=== PATIENT | female | born 1990 | race Two or more races ===

== ENCOUNTER 2016-06-10 17:44 | Inpatient (IN) | payer BC, MEDICAID ==
[~2016-06-10] VITALS: Ht 157.5 cm; Wt 72.9 kg
[~2016-06-10 17:44] MED LIST: ALBUAER3 IN; AMOX-263 PO; PRED-188 PO; TRAM50TA2 PO; [UNRECOGNIZED DRUG - CODE] PO
[2016-06-10 18:38] LABS: Urine Bilirubin Negative (Negative); Urine Blood TRACE /uL (Negative); Urine Color Yellow (Yellow); Urine Glucose Normal (Normal); Urine Ketone 1+ (Negative); Urine Mucus FEW (None Seen); Urine Nitrite Negative (Negative); Urine RBC 2 /hpf (0 - 4); Urine Squamous Epithelial Cell FEW /hpf (<5); Urine Urobilinogen Normal (Negative)
[2016-06-10 18:59] LABS: Basophils # (auto) 0.1 uL; Basophils % (auto) 0.5 % (0.0-2.0); Eosinophils # (auto) 0 uL; Hematocrit 40.1 % (36.0-46.0); Hemoglobin 13.6 g/dL (12.2-16.2); Lymphocytes # (auto) 1.8 uL; Lymphocytes % (auto) 11.8 % (10.0-50.0); Mean Corpuscular Hemoglobin 29.1 pg (28.0-32.0); Mean Corpuscular Hgb Conc. 33.8 g/dL (32.0-36.0); Mean Corpuscular Volume 86.1 fL (80.0-100.0); Mean Platelet Volume 9.1 fL (7.4-10.4); Monocytes # (auto) 0.5 uL; Monocytes % (auto) 3.2 % (0.0-12.0); Neutrophils # (auto) 12.8 uL; Neutrophils % (auto) 84.5 % (37.0-80.0); Platelet Count (auto) 396 10^3/uL (140-450); Red Cell Distribution Width 12.8 % (11.6-16.0); White Blood Cell 15.1 10^3/uL (4.4-10.8)
[2016-06-10 19:13] LABS: BUN/Creatinine Ratio 9.1; Calcium 9.4 mg/dL (8.5-10.1); Potassium 3.7 mmol/L (3.5-5.1)
[2016-06-10 19:16] LABS: Bilirubin, Total 0.3 mg/dL (0.2-1.0); Total Protein 8.9 g/dL (6.4-8.2)
[2016-06-10] MEDS ORDERED: ACETAMINOPHEN 325 MG TAB PO ONE (21:30)
[2016-06-10] MEDS ORDERED: MORPHINE SULF INJ 2 MG/ML SYRINGE 1ML IV ONE (21:30)
[2016-06-10] MEDS ORDERED: SODIUM CHLORIDE 0.9% 1,000 ML IV ONE (21:30)
[2016-06-10] MEDS ORDERED: ONDANSETRON HCL 4 MG/2 ML VIAL IV ONE (21:30)
[2016-06-10] MEDS ORDERED: IOHEXOL 300 MG/ML 100ML BOTTLE IJ ONE (22:31)
[2016-06-10] MEDS ORDERED: cefTRIAXone 1GM/50ML D5W 50 ML IV ONE (23:30)
[2016-06-10] MEDS ORDERED: metroNIDAZOLE 500MG/100ML 100 ML IV ONE (23:30)
[2016-06-10] MEDS ORDERED: ACETAMINOPHEN 325 MG TAB PO PRN (23:45)
[2016-06-11] VITALS (7 sets, daily range): BP systolic 106–118; BP diastolic 63–77
[2016-06-11] MEDS ORDERED: ACETAMINOPHEN 325 MG TAB PO PRN (00:15)
[2016-06-11] MEDS: MORPHINE SULF INJ 2 MG/ML SYRINGE 1ML IV PRN ×3 (00:42→08:34)
[2016-06-11] MEDS: SODIUM CHLORIDE 0.9% 1,000 ML IV SCH ×2 (01:53→05:29)
[2016-06-11] MEDS: ONDANSETRON HCL 4 MG/2 ML VIAL IV PRN ×2 (04:06→08:34)
[2016-06-11] MEDS: metroNIDAZOLE 500MG/100ML 100 ML IV SCH ×3 (05:29→21:50)
[2016-06-11 05:39] LABS: Basophils # (auto) 0.2 uL; Eosinophils # (auto) 0 uL; Eosinophils % (auto) 0.2 % (0.0-7.0); Hematocrit 35.3 % (36.0-46.0); Hemoglobin 11.6 g/dL (12.2-16.2); Lymphocytes # (auto) 1.4 uL; Lymphocytes % (auto) 9.5 % (10.0-50.0); Mean Corpuscular Hemoglobin 28.8 pg (28.0-32.0); Mean Corpuscular Hgb Conc. 32.8 g/dL (32.0-36.0); Mean Corpuscular Volume 87.8 fL (80.0-100.0); Mean Platelet Volume 8.8 fL (7.4-10.4); Monocytes # (auto) 0.9 uL; Monocytes % (auto) 5.9 % (0.0-12.0); Neutrophils # (auto) 12.5 uL; Neutrophils % (auto) 83.4 % (37.0-80.0); Platelet Count (auto) 333 10^3/uL (140-450); Red Cell Distribution Width 13.1 % (11.6-16.0)
[2016-06-11 05:58] LABS: INR 1.06 (0.9-1.15); Partial Thromboplastin Time 33.8 sec (22.64-33.71); Prothrombin Time 11.4 sec (9.37-12.3)
[2016-06-11 06:04] LABS: BUN/Creatinine Ratio 9.9; Potassium 3.9 mmol/L (3.5-5.1)
[2016-06-11] MEDS ORDERED: cefTRIAXone 1GM/50ML D5W 50 ML IV SCH (10:00)
[2016-06-11] MEDS ORDERED: PROPOFOL 10 MG/ML 20 ML IV ONE (12:30)
[2016-06-11] MEDS ORDERED: LIDOCAINE HCL 2 %PF INJ 10ML AMP IJ ONE (12:30)
[2016-06-11] MEDS ORDERED: ONDANSETRON HCL 4 MG/2 ML VIAL ONE (12:30)
[2016-06-11] MEDS ORDERED: METOCLOPRAMIDE HCL 5MG/ml INJ 2ml VIAL ONE (12:30)
[2016-06-11] MEDS ORDERED: DEXAMETHASONE SOD PHOS 10MG/1ML VIAL INJ ONE (12:30)
[2016-06-11] MEDS ORDERED: MIDAZOLAM HCL 1MG/1ML-2 ML VIAL ONE (12:31)
[2016-06-11] MEDS ORDERED: fentaNYL CITRATE 5 ML ONE (12:31)
[2016-06-11] MEDS ORDERED: BUPIVACAINE 0.25% INJ 50ML VIAL ONE (13:13)
[2016-06-11] MEDS ORDERED: SUCCINYLCHOLINE CHLORIDE 20 MG/ML 10ML VIAL IV ONE ×2 (13:15→14:11)
[2016-06-11] MEDS ORDERED: metroNIDAZOLE 500MG/100ML 100 ML IV ONE (13:43)
[2016-06-11] MEDS ORDERED: GENTAMICIN SULF 80 MG/2 ML VIAL ONE (13:54)
[2016-06-11] MEDS ORDERED: PIPERACILLIN-TAZOB 3.375GM 100 ML IV ONE (14:30)
[2016-06-11] MEDS ORDERED: LABETALOL HCL 5 MG/ML 4ML SYRINGE IV PRN (15:00)
[2016-06-11] MEDS ORDERED: NALOXONE HCL 0.4 MG/ML VIAL IV PRN (15:00)
[2016-06-11] MEDS ORDERED: KETOROLAC TROMETH 30 MG/ML 1ML VIAL IV ONE (15:00)
[2016-06-11] MEDS ORDERED: MIDAZOLAM HCL 1MG/1ML-2 ML VIAL IV PRN (15:00)
[2016-06-11] MEDS ORDERED: HYDROmorphone HCL 2 MG/ML VL IV PRN (15:00)
[2016-06-11] MEDS ORDERED: FLUMAZENIL 0.1 MG/ML INJ 10ML MDV IV ONE (15:00)
[2016-06-11] MEDS ORDERED: ONDANSETRON HCL 4 MG/2 ML VIAL IV ONE (15:00)
[2016-06-11] MEDS ORDERED: ePHEDrine SULFATE 50 MG/ML AMP IV PRN (15:00)
[2016-06-11] MEDS ORDERED: KETOROLAC TROMETH 30 MG/ML 1ML VIAL ONE (15:05)
[2016-06-11 16:37] LABS: INR 1.13 (0.9-1.15); Partial Thromboplastin Time 28.9 sec (22.64-33.71); Prothrombin Time 12.2 sec (9.37-12.3)
[2016-06-11] MEDS: PANTOPRAZOLE SODIUM 40 MG/10 ML VIAL IV SCH (17:31)
[2016-06-11] MEDS: HYDROmorphone HCL 2 MG/ML VL IV PRN ×2 (18:01→22:13)
[2016-06-11] MEDS: PIPERACILLIN-TAZOB 3.375GM 100 ML IV SCH (19:32)
[2016-06-12] VITALS (7 sets, daily range): BP systolic 92–114; BP diastolic 47–70
[2016-06-12] MEDS: SODIUM CHLORIDE 0.9% 1,000 ML IV SCH ×3 (00:29→16:31)
[2016-06-12] MEDS: PIPERACILLIN-TAZOB 3.375GM 100 ML IV SCH ×5 (00:30→23:48)
[2016-06-12] MEDS: HYDROcodone-ACET 5/325MG TAB PO PRN ×2 (00:46→10:16)
[2016-06-12] MEDS: metroNIDAZOLE 500MG/100ML 100 ML IV SCH ×3 (05:39→21:55)
[2016-06-12] MEDS: HYDROmorphone HCL 2 MG/ML VL IV PRN ×4 (05:53→21:55)
[2016-06-12 06:09] LABS: Basophils # (auto) 0 uL; Basophils % (auto) 0.1 % (0.0-2.0); Eosinophils # (auto) 0 uL; Hematocrit 34.9 % (36.0-46.0); Hemoglobin 11.3 g/dL (12.2-16.2); Lymphocytes # (auto) 0.8 uL; Lymphocytes % (auto) 4.6 % (10.0-50.0); Mean Corpuscular Hemoglobin 28.7 pg (28.0-32.0); Mean Corpuscular Hgb Conc. 32.5 g/dL (32.0-36.0); Mean Corpuscular Volume 88.4 fL (80.0-100.0); Mean Platelet Volume 9.8 fL (7.4-10.4); Monocytes # (auto) 0.3 uL; Neutrophils # (auto) 15.8 uL; Neutrophils % (auto) 93.3 % (37.0-80.0); Platelet Count (auto) 350 10^3/uL (140-450); Red Cell Distribution Width 12.6 % (11.6-16.0); SUSPECT VIEW TRANSMISSION; White Blood Cell 16.9 10^3/uL (4.4-10.8)
[2016-06-12 06:36] LABS: Albumin 2.8 g/dL (3.4-5.0); BUN/Creatinine Ratio 12.1; Bilirubin, Total 0.4 mg/dL (0.2-1.0); Calcium 7.9 mg/dL (8.5-10.1); Potassium 3.8 mmol/L (3.5-5.1); Total Protein 7.4 g/dL (6.4-8.2)
[2016-06-12] MEDS: PANTOPRAZOLE SODIUM 40 MG/10 ML VIAL IV SCH (10:16)
[2016-06-13] MEDS: SODIUM CHLORIDE 0.9% 1,000 ML IV SCH ×3 (01:07→17:25)
[2016-06-13] MEDS: HYDROmorphone HCL 2 MG/ML VL IV PRN ×3 (04:57→19:08)
[2016-06-13] MEDS: ONDANSETRON HCL 4 MG/2 ML VIAL IV PRN ×3 (04:57→22:46)
[2016-06-13] MEDS: metroNIDAZOLE 500MG/100ML 100 ML IV SCH ×3 (05:47→21:35)
[2016-06-13 05:51] VITALS: BP 99/63
[2016-06-13 06:40] LABS: Basophils # (auto) 0.1 uL; Basophils % (auto) 0.5 % (0.0-2.0); Eosinophils # (auto) 0 uL; Eosinophils % (auto) 0.1 % (0.0-7.0); Hematocrit 29.5 % (36.0-46.0); Hemoglobin 9.6 g/dL (12.2-16.2); Lymphocytes # (auto) 1.9 uL; Lymphocytes % (auto) 14.5 % (10.0-50.0); Mean Corpuscular Hgb Conc. 32.7 g/dL (32.0-36.0); Mean Corpuscular Volume 88.7 fL (80.0-100.0); Mean Platelet Volume 9.2 fL (7.4-10.4); Monocytes # (auto) 0.6 uL; Monocytes % (auto) 4.4 % (0.0-12.0); Neutrophils # (auto) 10.4 uL; Neutrophils % (auto) 80.5 % (37.0-80.0); Platelet Count (auto) 348 10^3/uL (140-450); Red Cell Distribution Width 12.9 % (11.6-16.0); White Blood Cell 12.9 10^3/uL (4.4-10.8)
[2016-06-13] MEDS: PIPERACILLIN-TAZOB 3.375GM 100 ML IV SCH ×3 (06:58→18:58)
[2016-06-13 07:03] LABS: Potassium 3.3 mmol/L (3.5-5.1)
[2016-06-13 07:07] LABS: Albumin 2.5 g/dL (3.4-5.0); BUN/Creatinine Ratio 17.5; Calcium 7.8 mg/dL (8.5-10.1)
[2016-06-13 07:16] LABS: Bilirubin, Total 0.4 mg/dL (0.2-1.0); Total Protein 6.2 g/dL (6.4-8.2)
[2016-06-13 08:30] VITALS: BP 103/60
[2016-06-13] MEDS: PANTOPRAZOLE SODIUM 40 MG/10 ML VIAL IV SCH (08:42)
[2016-06-13 17:29] VITALS: BP 125/84
[2016-06-13] MEDS: HYDROcodone-ACET 5/325MG TAB PO PRN (19:00)
[2016-06-13 20:00] VITALS: BP 105/68
[2016-06-13 21:30] VITALS: BP 105/68
[2016-06-13] MEDS: DOCUSATE SOD 100 MG CAP PO SCH (21:34)
[2016-06-14] VITALS (7 sets, daily range): BP systolic 112–123; BP diastolic 74–83
[2016-06-14] MEDS: PIPERACILLIN-TAZOB 3.375GM 100 ML IV SCH ×4 (00:30→18:26)
[2016-06-14] MEDS: SODIUM CHLORIDE 0.9% 1,000 ML IV SCH ×3 (02:30→18:26)
[2016-06-14] MEDS: metroNIDAZOLE 500MG/100ML 100 ML IV SCH ×3 (05:32→22:27)
[2016-06-14 05:43] LABS: Albumin 2.5 g/dL (3.4-5.0); Calcium 7.6 mg/dL (8.5-10.1); Potassium 3.2 mmol/L (3.5-5.1)
[2016-06-14 05:45] LABS: Bilirubin, Total 0.2 mg/dL (0.2-1.0); Total Protein 6.3 g/dL (6.4-8.2)
[2016-06-14 06:10] LABS: Basophils # (auto) 0 uL; Basophils % (auto) 0.4 % (0.0-2.0); Eosinophils # (auto) 0 uL; Eosinophils % (auto) 0.5 % (0.0-7.0); Hematocrit 32.5 % (36.0-46.0); Hemoglobin 10.5 g/dL (12.2-16.2); Lymphocytes # (auto) 1.6 uL; Lymphocytes % (auto) 16.2 % (10.0-50.0); Mean Corpuscular Hemoglobin 28.7 pg (28.0-32.0); Mean Corpuscular Hgb Conc. 32.4 g/dL (32.0-36.0); Mean Corpuscular Volume 88.7 fL (80.0-100.0); Mean Platelet Volume 8.9 fL (7.4-10.4); Monocytes # (auto) 0.5 uL; Monocytes % (auto) 4.7 % (0.0-12.0); Neutrophils # (auto) 7.6 uL; Neutrophils % (auto) 78.2 % (37.0-80.0); Platelet Count (auto) 386 10^3/uL (140-450); Red Cell Distribution Width 12.9 % (11.6-16.0); White Blood Cell 9.7 10^3/uL (4.4-10.8)
[2016-06-14] MEDS: ONDANSETRON HCL 4 MG/2 ML VIAL IV PRN ×3 (08:00→23:06)
[2016-06-14] MEDS: HYDROmorphone HCL 2 MG/ML VL IV PRN (08:00)
[2016-06-14] MEDS: DOCUSATE SOD 100 MG CAP PO SCH ×2 (09:56→22:26)
[2016-06-14] MEDS: PANTOPRAZOLE SODIUM 40 MG/10 ML VIAL IV SCH (09:56)
[2016-06-14] MEDS: HYDROcodone-ACET 5/325MG TAB PO PRN (09:57)
[2016-06-14] MEDS ORDERED: PROCHLORPERAZINE EDISYLATE 5 MG/ML 2ML VIAL IV PRN (12:00)
[2016-06-14] MEDS: BOOST PLUS 8 ounce PO SCH ×3 (12:00→22:27)
[2016-06-14] MEDS ORDERED: POTASSIUM CHLORIDE 20 MEQ, LIDOCAINE 1% (LOCAL ANESTH.) 2 ML in SODIUM CHL 0.9% 100 ML IV ONE (12:15)
[2016-06-15] MEDS: PIPERACILLIN-TAZOB 3.375GM 100 ML IV SCH ×2 (00:41→06:48)
[2016-06-15] MEDS: SODIUM CHLORIDE 0.9% 1,000 ML IV SCH (03:01)
[2016-06-15 05:30] VITALS: BP 121/77
[2016-06-15] MEDS: metroNIDAZOLE 500MG/100ML 100 ML IV SCH (05:31)
[2016-06-15 06:14] LABS: Basophils # (auto) 0 uL; Basophils % (auto) 0.5 % (0.0-2.0); Eosinophils # (auto) 0.1 uL; Eosinophils % (auto) 1.1 % (0.0-7.0); Hemoglobin 10.7 g/dL (12.2-16.2); Lymphocytes # (auto) 1.6 uL; Lymphocytes % (auto) 16.7 % (10.0-50.0); Mean Corpuscular Hgb Conc. 33.5 g/dL (32.0-36.0); Mean Corpuscular Volume 86.7 fL (80.0-100.0); Mean Platelet Volume 8.6 fL (7.4-10.4); Monocytes # (auto) 0.5 uL; Monocytes % (auto) 5.4 % (0.0-12.0); Neutrophils # (auto) 7.3 uL; Neutrophils % (auto) 76.3 % (37.0-80.0); Platelet Count (auto) 424 10^3/uL (140-450); Red Cell Distribution Width 12.9 % (11.6-16.0); White Blood Cell 9.5 10^3/uL (4.4-10.8)
[2016-06-15] MEDS: BOOST PLUS 8 ounce PO SCH ×2 (06:20→12:00)
[2016-06-15 06:31] LABS: Potassium 3.3 mmol/L (3.5-5.1)
[2016-06-15 06:34] LABS: Albumin 2.6 g/dL (3.4-5.0); BUN/Creatinine Ratio 8.1; Calcium 8.1 mg/dL (8.5-10.1)
[2016-06-15 06:37] LABS: Bilirubin, Total 0.2 mg/dL (0.2-1.0); Total Protein 6.4 g/dL (6.4-8.2)
[2016-06-15] MEDS: PANTOPRAZOLE SODIUM 40 MG/10 ML VIAL IV SCH (08:17)
[2016-06-15] MEDS: ONDANSETRON HCL 4 MG/2 ML VIAL IV PRN (08:17)
[2016-06-15] MEDS: DOCUSATE SOD 100 MG CAP PO SCH (08:18)
[2016-06-15 09:00] VITALS: BP 126/83
[2016-06-15] MEDS ORDERED: LEVO500T3 PO (10:56)
[2016-06-15] MEDS ORDERED: LEVOFLOXACIN 500 MG TAB PO ONE (11:30)
[2016-06-15 13:00] VITALS: BP 128/84
[2016-06-15] MEDS ORDERED: NOREPINEPHRINE BITARTRATE 250 ML IV ONE (13:58)
[2016-06-15 16:02] VITALS: BP 126/83
[2016-06-16] MEDS ORDERED: LEVOFLOXACIN 500 MG TAB PO SCH (10:00)
[2016-06-16] MEDS ORDERED: LEVOFLOXACIN 500MG 100 ML IV SCH (10:00)
== END 2016-06-15 17:20 | disposition home or self-care (01) | DRG 853 ==
LOC: ER 17:51 → OVERFLOW 17:52 → WEST WING 06-11 00:49
PROVIDERS: ADMIT Emergency Medicine; ATTEND Internal Medicine
PROC: 0DNE4ZZ Release Large Intestine, Percutaneous Endoscopic Approach (ICD-10-PCS; 2016-06-11)
PROC: 0DNW4ZZ Release Peritoneum, Percutaneous Endoscopic Approach (ICD-10-PCS; 2016-06-11)
PROC: 0J9C3ZZ Drainage of Pelvic Region Subcutaneous Tissue and Fascia, Percutaneous Approach (ICD-10-PCS; 2016-06-11)
PROC: 3E1M38Z Irrigation of Peritoneal Cavity using Irrigating Substance, Percutaneous Approach (ICD-10-PCS; 2016-06-11)
PROC: 0DTJ4ZZ Resection of Appendix, Percutaneous Endoscopic Approach (ICD-10-PCS; principal; 2016-06-11 13:30)
DX: A41.9 Sepsis, unspecified organism (principal); K35.3 Acute appendicitis with localized peritonitis; N30.00 Acute cystitis without hematuria; E86.0 Dehydration; J45.909 Unspecified asthma, uncomplicated; N18.2 Chronic kidney disease, stage 2 (mild); Z79.899 Other long term (current) drug therapy; K66.0 Peritoneal adhesions (postprocedural) (postinfection); G89.29 Other chronic pain
CPT/HCPCS: 36415; 71010; 74176; 74177; 80048; 80053; 81001; 81025; 82150; 83605; 83690; 84702; 85025; 85610; 85730; 86850; 86900; 86901; 87070; 87075; 87081; 87086; 87205; 93005; 96361; 96365; 96375; C9113; J0330; J0696; J1100; J1885; J2001; J2250; J2405; J2543; J2704; J3490